=== PATIENT | male | born 1965 | race Two or more races ===

== ENCOUNTER 2018-04-26 12:29 | Emergency (ER) | payer OTHER ==
[2018-04-26] MEDS ORDERED: TDAP ADULT 0.5 ML INJ (BOOSTRIX) IM ONE (13:16)
--- NOTE | 2018-04-26 14:54 | EDPHY ---
H & P Time Seen by Provider: 04/26/18 12:44 HPI/ROS: CHIEF COMPLAINT: Left hand injury HISTORY OF PRESENT ILLNESS: 52-year-old male presents to the emergency department with left hand injury. The patient was at work and accidentally cut his left index finger and middle finger on a piece of equipment. The incident happened just prior to arrival. He is unsure of his last tetanus shot. He is right-hand dominant. He complains of some tingling at the very distal tip of his left index and middle finger. ROS: Denies retained foreign body, wrist injury. Past Medical/Surgical History: Orthopedic injuries Social History: Single Smoking Status: Never smoked Physical Exam: On examination the patient has a large flap laceration to the palmar aspect of the base of the left index finger as well as a smaller 2 cm laceration to the dorsal aspect of the left index finger overlying proximal phalanx. Full range of motion of his left index finger. No tendon injury identified. The left middle finger has a small 2 cm laceration the dorsal aspect overlying proximal phalanx with partial extensor tendon laceration noted. No evidence of retained foreign body. He has normal sensation to light touch with normal 2 point discrimination. No palpable bony tenderness. Full range of motion of his fingers. Constitutional: Initial Vital Signs Temperature (C) 36.9 C 04/26/18 12:33 Heart Rate 87 04/26/18 12:33 Respiratory Rate 16 04/26/18 12:33 Blood Pressure 112/73 04/26/18 12:33 O2 Sat (%) 95 04/26/18 12:33 O2 Delivery Mode Room Air Allergies/Adverse Reactions: No Known Allergies Allergy (Unverified 04/26/18 12:38) Home Medications: Medication Instructions Recorded Cephalexin [Keflex] 500 mg PO QID #28 cap 04/26/18 MDM/Departure - MDM Imaging Results: Imaging Impressions Hand X-Ray 04/26/18 13:13 Impression: 1. Soft tissue injury to the second and third digits. 2. Cortical splinter fracture versus radio opaque foreign body "splinter" in the proximal third finger. Imaging: I viewed and interpreted images myself Procedures: Laceration repair #1. Verbal consent was obtained from the patient. The 2 cm laceration on the left index finger was anesthetized using digital block using 1% lidocaine without epinephrine 0.5% bupivacaine without epinephrine. The wound was irrigated with saline, draped and explored to its base with a gloved finger. There were no deep structures involved. No tendon injury was identified. The wound was repaired with 4 0 Ethilon, 5 sutures. The wound repair was simple. The procedure was performed by myself. Laceration repair #2. Verbal consent was obtained from the patient. The 4 cm flap laceration on the left index finger was anesthetized using digital block using 1% lidocaine without epinephrine 0.5% bupivacaine without epinephrine. The wound was irrigated with saline, draped and explored to its base with a gloved finger. There were no deep structures involved. No tendon injury was identified. The wound was repaired with 4 0 Ethilon, 9 sutures. The wound repair was complex. The procedure was performed by myself. Laceration repair #3. Verbal consent was obtained from the patient. The 2 cm laceration on the left middle finger was anesthetized using digital block using 1% lidocaine without epinephrine 0.5% bupivacaine without epinephrine. The wound was irrigated with saline, draped and explored to its base with a gloved finger. There were no deep structures involved. Partial laceration of the extensor tendon of the left middle finger noted. The wound was repaired with 4 0 Ethilon, 5 sutures. The wound repair was simple. The procedure was performed by myself. Medications Given: Discontinued Medications Diphtheria/Tetanus/Acell Pertussis (Boostrix) 0.5 ml IM .ONCE ONE Stop: 04/26/18 13:17 Last Admin: 04/26/18 13:19 Dose: 0.5 ml ED Course/Re-evaluation: 52-year-old male presents to the emergency department with finger laceration purse. The wounds were repaired, see procedure note. The patient was found to have a partial tendon laceration of left middle finger. He was started on Keflex as fingers were placed in splints and he was given orthopedic hand surgical referral. His tetanus shot was updated. X-rays do not reveal fractures. There is of radiopaque possible foreign body versus splinter in his left middle finger on the palmar side which reveals clinically no evidence of injury. This could be chronic. pet sitting was at bedside. - Depart Disposition: Home, Routine, Self-Care Clinical Impression: Extensor tendon laceration middle finger Laceration of left index finger Qualifiers: Encounter type: initial encounter Damage to nail status: without damage Foreign body presence: without foreign body Qualified Code(s): S61.211A - Laceration without foreign body of left index finger without damage to nail, initial encounter Laceration of left middle finger Qualifiers: Encounter type: initial encounter Damage to nail status: without damage Foreign body presence: without foreign body Qualified Code(s): S61.213A - Laceration without foreign body of left middle finger without damage to nail, initial encounter Condition: Good Instructions: Care For Your Stitches (ED), Laceration (ED), Tendon Laceration ( ED), Acute Wounds (ED) Additional Instructions: Keflex as directed for 7 days to prevent infection. Keep splint and dressing on until follow up with orthopedic hand surgeon. Ibuprofen 600mg every 8 hours for pain as directed. Keflex luana se le indico por 7 marshall para prevenir tricia infeccion. Mantenga el cabestrillo y el vendajepuestos hasta que brian el seguimiento con el cirujano ortopedico de la mano. Ibuprofen 600mg cada 8 horas para el dolor luana se le indica. Prescriptions: Cephalexin [Keflex] 500 mg PO QID #28 cap Referrals: Citlaly Rodriguez MD [Medical Doctor] - 1-2 days without fail (Orthopedic hand surgeon on-call) Print Language: Greek
[2018-04-26 15:38] VITALS: BP 129/78
== END 2018-04-26 15:35 | disposition home or self-care (01) ==
PROC: 0HQGXZZ Repair Left Hand Skin, External Approach (ICD-10-PCS; principal; 2018-04-26)
DX: S61.211A Laceration without foreign body of left index finger without damage to nail, initial encounter (principal); S66.323A Laceration of extensor muscle, fascia and tendon of left middle finger at wrist and hand level, initial encounter; Z23 Encounter for immunization; W31.9XXA Contact with unspecified machinery, initial encounter; Y99.8 Other external cause status; Y93.89 Activity, other specified